=== PATIENT | female | born 1935 | race Two or more races ===

== ENCOUNTER 2017-04-30 10:08 | Outpatient (CLI) | payer OTHER ==
[~2017-04-30 10:08] MED LIST: ALBUTEROL IH; KETO10TA2 PO; MEDROLPACK PO; RESPTHERAMACH; TUSSIONEX PENN115 ML PO; ZITHROMAX500 MG PO
== END 2017-04-30 10:18 | disposition home or self-care (01) ==
LOC: TOM 10:08
DX: R19.5 Other fecal abnormalities (principal); Z80.0 Family history of malignant neoplasm of digestive organs

== ENCOUNTER 2019-03-05 20:21 | Emergency (ER) | payer OTHER ==
[~2019-03-05] VITALS: Ht 144.8 cm; Wt 67.1 kg
[2019-03-05] MEDS ORDERED: EVISTA60 MG (20:41)
[2019-03-05] MEDS ORDERED: ZYRTEC10 M3 (20:41)
[2019-03-05] MEDS ORDERED: PLAVIX75 MG (20:43)
[2019-03-05] MEDS ORDERED: SKELAXIN800 MG PO (22:41)
[2019-03-05] MEDS ORDERED: KETO10TA2 PO (22:41)
== END 2019-03-05 22:59 | disposition home or self-care (01) ==
LOC: ER 20:21
DX: M54.89 Other dorsalgia (principal); M54.2 Cervicalgia

== ENCOUNTER 2019-08-09 06:37 | Inpatient (IN) | payer OTHER ==
[~2019-08-09] VITALS: Ht 152.4 cm; Wt 70.3 kg
[~2019-08-09 06:37] MED LIST changes: +EVISTA60 MG; +PLAVIX75 MG; +SKELAXIN800 MG PO; +ZANAFLEX2 MG PO; +ZYRTEC10 M3
[2019-08-09] MEDS ORDERED: SYNTHROID75 MCG (06:50)
--- NOTE | 2019-08-09 06:50 | NUR ---
SE RECIBE PTE EN AMBULANCIA ALERTA Y ORIENTADA POR ROSENDO. PTE REFIERE PRESENTAR DOLOR EN LADO VALENTINA DEL ABDOMEN Y NAUSEAS DESDE LA MANANA DE HOY. PTE ES PRESENTADA A DR. MENDEZ POR PERSONAL PARAMEDICO.
--- NOTE | 2019-08-09 08:06 | NUR ---
PTE FEMENINA ALERTA Y ORIENTADA EN LAS ROSENDO ESFERAS, ES EVALUADA POR EL CUAL ORDENA TRATAMIENTO. ORIENTA PTE SOBRE TRATAMIENTO ORDENADO REFIERE COMPRENDER. PROCEDE A COLECCION DE MUESTRAS DE LABORATORIO, CANALIZACION Y ADMINISTRA MEDICAMENTOS BAJO MEDIDAS ASEPTICAS. SE ORIENTA PTE A QUE NO PUEDE INGERIR ALIMENTOS, REFIERE COMPRENDER. SE MANTIENE BAJO OBSERVACION POR CAMBIOS EN MOORE CONDICION.
[2019-08-13] MEDS ORDERED: PLAVIX75 MG PO (11:50)
[2019-08-13] MEDS ORDERED: PROZAC20 MG PO (11:50)
[2019-08-13] MEDS ORDERED: NAMENDA10 MG PO (11:51)
[2019-08-13] MEDS ORDERED: INTESTINEX680 M1 PO (11:51)
[2019-08-13] MEDS ORDERED: LEVOTHYROXINE112 MCG PO (11:52)
[2019-08-13] MEDS ORDERED: ZOCOR20 MG PO (11:53)
[2019-08-13] MEDS ORDERED: CEFDINIR300 MG PO (11:54)
[2019-08-13] MEDS ORDERED: PEPCID AC20 MG PO (11:54)
== END 2019-08-13 18:11 | disposition home or self-care (01) | DRG 392 ==
LOC: ER 06:37 → MEDI 18:02
PROVIDERS: ADMIT Internal Medicine Geriatric Medicine; ATTEND Internal Medicine Geriatric Medicine
PROC: BW21ZZZ Computerized Tomography (CT Scan) of Abdomen and Pelvis (ICD-10-PCS; principal; 2019-08-09)
PROC: BW40ZZZ Ultrasonography of Abdomen (ICD-10-PCS; 2019-08-10)
PROC: CF1C1ZZ Planar Nuclear Medicine Imaging of Hepatobiliary System, All using Technetium 99m (Tc-99m) (ICD-10-PCS; 2019-08-10)
DX: K52.9 Noninfective gastroenteritis and colitis, unspecified (principal); E87.1 Hypo-osmolality and hyponatremia; I10 Essential (primary) hypertension; E11.9 Type 2 diabetes mellitus without complications; E86.0 Dehydration; E87.6 Hypokalemia; H90.3 Sensorineural hearing loss, bilateral

== ENCOUNTER 2019-11-12 11:33 | Outpatient (CLI) | payer OTHER ==
[~2019-11-12 11:33] MED LIST changes: +CEFDINIR300 MG PO; +INTESTINEX680 M1 PO; +LEVOTHYROXINE112 MCG PO; +NAMENDA10 MG PO; +PEPCID AC20 MG PO; +PLAVIX75 MG PO; +PROZAC20 MG PO; +SYNTHROID75 MCG; +ZOCOR20 MG PO
== END 2019-11-12 12:55 | disposition home or self-care (01) ==
LOC: NUCLEAR 11:33
PROVIDERS: ATTEND Internal Medicine Geriatric Medicine
DX: I11.9 Hypertensive heart disease without heart failure (principal)

== ENCOUNTER → 2020-01-31 | Outpatient (CLI) | payer OTHER | END | disposition home or self-care (01) | LOC: SONOGRAMA 09:43 | PROVIDERS: ATTEND Internal Medicine Gastroenterology | DX: K76.89 Other specified diseases of liver (principal); K30 Functional dyspepsia; R11.2 Nausea with vomiting, unspecified ==

== ENCOUNTER 2020-10-31 14:05 | Outpatient (CLI) | payer OTHER | END 2020-10-31 14:16 | disposition home or self-care (01) | LOC: RAD 14:05 | PROVIDERS: ATTEND Internal Medicine Cardiovascular Disease | DX: I10 Essential (primary) hypertension (principal) ==

== ENCOUNTER 2020-12-22 11:10 | Outpatient (CLI) | payer OTHER | END 2020-12-22 11:11 | disposition home or self-care (01) | LOC: NUCLEAR 11:10 | PROVIDERS: ATTEND Internal Medicine Cardiovascular Disease | DX: I35.0 Nonrheumatic aortic (valve) stenosis (principal); I25.9 Chronic ischemic heart disease, unspecified; G45.1 Carotid artery syndrome (hemispheric) ==

== ENCOUNTER 2021-08-08 14:56 | Outpatient (CLI) | payer OTHER | END 2021-08-08 15:00 | disposition home or self-care (01) | LOC: RAD 14:56 | PROVIDERS: ATTEND Orthopaedic Surgery | DX: M25.561 Pain in right knee (principal) ==

== ENCOUNTER 2021-08-17 14:02 | Outpatient (CLI) | payer OTHER | END 2021-08-17 14:03 | disposition home or self-care (01) | LOC: NUCLEAR 14:02 | PROVIDERS: ATTEND Orthopaedic Surgery | DX: M81.0 Age-related osteoporosis without current pathological fracture (principal); Z88.6 Allergy status to analgesic agent; Z91.018 Allergy to other foods ==

== ENCOUNTER 2022-03-08 11:51 | Outpatient (CLI) | payer OTHER | END 2022-03-08 11:53 | disposition home or self-care (01) | LOC: NUCLEAR 11:51 | PROVIDERS: ATTEND Internal Medicine Cardiovascular Disease | DX: I11.9 Hypertensive heart disease without heart failure (principal) ==

== ENCOUNTER 2022-05-18 14:14 | Emergency (ER) | payer OTHER ==
[~2022-05-18] VITALS: Ht 144.8 cm; Wt 65.8 kg
== END 2022-05-18 17:58 | disposition home or self-care (01) ==
LOC: ER 14:14
DX: M77.8 Other enthesopathies, not elsewhere classified (principal); Z88.6 Allergy status to analgesic agent; Z91.018 Allergy to other foods

== ENCOUNTER 2023-10-10 11:42 | Outpatient (CLI) | payer OTHER ==
[~2023-10-10 11:42] MED LIST changes: +MONTELUKAST SOD10 MG; +PRIMIDONE50 MG; +SYMBICORT 16010.2 GM
== END 2023-10-10 11:43 | disposition home or self-care (01) ==
LOC: NUCLEAR 11:42
PROVIDERS: ATTEND Internal Medicine
DX: I50.9 Heart failure, unspecified (principal)

== ENCOUNTER 2024-11-11 14:12 | Outpatient (CLI) | payer OTHER | END 2024-11-11 14:27 | disposition home or self-care (01) | LOC: SONOGRAMA 14:12 | DX: M75.102 Unspecified rotator cuff tear or rupture of left shoulder, not specified as traumatic (principal); M47.812 Spondylosis without myelopathy or radiculopathy, cervical region; M47.814 Spondylosis without myelopathy or radiculopathy, thoracic region ==